=== PATIENT | female | born 1955 | race Caucasian/White ===

== ENCOUNTER 2016-09-29 12:47 | Outpatient (CLI) | payer OTHER ==
[~2016-09-29 12:47] MED LIST: ANASTROZOLE1 MG PO; NORCO1 TA1 PO; QUESTRAN4 GM PO; VITAMIN D-31000 UNIT PO
--- NOTE | 2016-09-29 15:07 | DIAGNOSTIC IMAGING REPORT ---
PROCEDURE: MG BILATERAL SCREENING W/CAD INDICATION: Screening. History of right breast carcinoma (2012) with follow-up biopsy 2015 (benign) TECHNIQUE: Bilateral CC and MLO digital views. COMPARISON: Comparison is made to right mammogram (09/26/2015, 02/19/2015, screening mammogram studies (02/15/2015, 01/31/2014, 03/18/2013). FINDINGS: Computer-aided detection applied. Mildly dense parenchymal pattern. There are postoperative change of the anterior central right breast with a large 5.5 x 4.5 cm ovoid soft tissue density associated with a few dystrophic calcifications. Left breast is unchanged and within normal limits. IMPRESSION: 1. There is a large 5.5 x 4.5 cm ovoid soft tissue density in the anterior central right breast. While findings are most compatible with a resolving or evolving hematoma, ultrasound is recommended to confirm. 2. Otherwise negative mammogram. 3. Findings discussed with the patient. RESULT CODE: 0- Incomplete; needs additional evaluation. A. A negative report should not delay biopsy if a dominant or clinically suspicious mass is present. 10-15% of cancers are not identified by x-ray. B. A negative report may reinforce clinical impression. C. Adenosis and dense breasts may obscure an underlying neoplasm. D. False positive reports average 6-10%. E.. A yearly screening mammogram is recommended. A reminder letter will be scheduled.
--- NOTE | 2016-09-29 15:17 | DIAGNOSTIC IMAGING REPORT ---
PROCEDURE: US LTD BREAST ULTRASOUND - RT INDICATION: Follow-up right breast density/hematoma. TECHNIQUE: High resolution mata scale and color Doppler sonographic images of the right breast. COMPARISON: Comparison is made to screening mammogram earlier in the day (09/29/2016). FINDINGS: There is a large 5.4 x 5.0 x 2.8 cm ovoid hypoechoic nodule with internal septations and thickened alvarez. Findings are compatible with an organizing hematoma/seroma. There is an adjacent 6 mm x 4 mm benign intramammary lymph node. IMPRESSION: 1. Confirmation of a large 5.4 x 5.0 x 2.8 cm organizing hematoma in the central right breast. 2. Findings discussed with the patient. 3. Otherwise negative mammogram and right breast ultrasound. 4. Resume routine screening mammogram schedule (September 2017). RESULT CODE: 2- Benign finding(s). A. A negative report should not delay biopsy if a dominant or clinically suspicious mass is present. 10-15% of cancers are not identified by x-ray. B. A negative report may reinforce clinical impression. C. Adenosis and dense breasts may obscure an underlying neoplasm. D. False positive reports average 6-10%. E.. A yearly screening mammogram is recommended. A reminder letter will be scheduled.
== END 2016-09-29 23:00 | disposition home or self-care (01) ==
LOC: MAM SRH 12:47
DX: N64.89 Other specified disorders of breast (principal)